=== PATIENT | female | born 1965 | race Caucasian/White ===

== ENCOUNTER → 2017-04-14 | Outpatient (CLI) | payer OTHER | LOC: CIMAGING 07:04 | PROVIDERS: ATTEND Family Medicine | DX: M54.2 Cervicalgia (principal) | CPT/HCPCS: 72050-PO ==

== ENCOUNTER 2017-06-15 13:36 | Emergency (ER) | payer OTHER ==
[2017-06-15 13:46] VITALS: O2SAT 99
--- NOTE | 2017-06-15 13:57 | CPEKG ---
Heart Rate: 60 RR Interval: 1000 P-R Interval: 188 QRSD Interval: 106 QT Interval: 440 QTC Interval: 440 P [place]: 24 QRS [place]: -6 T Wave [place]: 4 EKG Severity - NORMAL ECG - EKG Impression: SINUS RHYTHM Electronically Signed By: Adrian Gallagher 15-Jun-2017 14:44:24
[2017-06-15] MEDS ORDERED: NS 1,000 ML IV ONE (14:36)
--- NOTE | 2017-06-15 14:43 | EDPHY ---
H & P Stated Complaint: DIZZINESS , CHEST PAIN, ANXIETY AND STRESS Time Seen by Provider: 06/15/17 13:45 HPI/ROS: CHIEF COMPLAINT: Lightheaded, nauseous, anxious HISTORY OF PRESENT ILLNESS: The patient is a 52-year-old female who comes to the emergency department her complaining of 2 days worth of being lightheaded, nauseous, anxious and stressed out. She also reports intermittent pains in her shoulders bilaterally. This has been going on for years but is worsened over the last 2 days. She denies chest pain per se although her states she occasionally has is acting sensation across her chest. She also has occasional headaches and occasional paresthesias in the left side of her face just at the upper cheek. This only lasts for few minutes at a time. No weakness or deficits. 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 She had surgery for this about a year ago. She has been followed by her architectural project manager Dr. Quinn and her primary doctor . She has had negative echocardiograms and EKGs. They state that she has been to the ER several times and no significant abnormalities or found. She has an appointment with a rehabilitation program manager Dr. Shipman tomorrow in [place]. Her primary has referred her for treatment for PTSD and to explore depressive type possibilities. REVIEW OF SYSTEMS: Constitutional: denies: chills, fever, recent illness, recent injury EENTM: denies: blurred vision, double vision, nose congestion Respiratory: denies: cough, shortness of breath Cardiac: denies: chest pain, irregular heart rate, lightheadedness, palpitations Gastrointestinal/Abdominal: denies: abdominal pain, diarrhea, nausea, vomiting, blood streaked stools Genitourinary: denies: dysuria, frequency, hematuria, pain Musculoskeletal: denies: joint pain, muscle pain Skin: denies: lesions, rash, jaundice, bruising Neurological: denies: headache, numbness, paresthesia, tingling, dizziness, weakness Hematologic/Lymphatic: denies: blood clots, easy bleeding, easy bruising Immunologic/allergic: denies: HIV/AIDS, transplant EXAM: GENERAL: Well-appearing, well-nourished and in no acute distress. HEAD: Atraumatic, normocephalic. EYES: Pupils equal round and reactive to light, extraocular movements intact, sclera anicteric, conjunctiva are normal. ENT: TMs normal, nares patent, oropharynx clear without exudates. Moist mucous membranes. NECK: Normal range of motion, supple without lymphadenopathy or JVD. LUNGS: Breath sounds clear to auscultation bilaterally and equal. No wheezes rales or rhonchi. HEART: Regular rate and rhythm without murmurs, rubs or gallops. ABDOMEN: Soft, nontender, normoactive bowel sounds. No guarding, no rebound. No masses appreciated. BACK: No CVA tenderness, no spinal tenderness, step-offs or deformities EXTREMITIES: Normal range of motion, no pitting or edema. No clubbing or cyanosis. NEUROLOGICAL: Cranial nerves II through XII grossly intact. Normal speech, normal gait. 5/5 strength, normal movement in all extremities, normal sensation , normal cerebellar exam, normal strength and reflexes PSYCH: Normal mood, normal affect. SKIN: Warm, dry, normal turgor, no visible rashes or lesions. Source: Patient Exam Limitations: No limitations - Personal History LMP (Females 10-55): Post Menopausal Current Tetanus/Diphtheria Vaccine: Yes Current Tetanus Diphtheria and Acellular Pertussis (TDAP): Yes Tetanus Vaccine Date: < 10 years - Medical/Surgical History Hx Asthma: No Hx Chronic Respiratory Disease: No Hx Diabetes: No Hx Cardiac Disease: Yes Hx Renal Disease: Yes Hx Cirrhosis: No Hx Alcoholism: No Hx HIV/AIDS: No Hx Splenectomy or Spleen Trauma: No Other PMH: Fibroids, hydronephrosis, anemia, C section, heart ablation for RVOT. - Social History Smoking Status: Never smoked Constitutional: Initial Vital Signs Temperature (C) 36.7 C 06/15/17 13:44 Heart Rate 66 06/15/17 13:44 Respiratory Rate 22 H 06/15/17 13:44 Blood Pressure 147/112 H 06/15/17 13:44 O2 Sat (%) 99 06/15/17 13:44 O2 Delivery Mode Room Air Allergies/Adverse Reactions: Penicillins Allergy (Verified 07/02/16 18:05) Medical Decision Making - Diagnostics EKG Interpretation: An EKG obtained and was read and documented in trace view. Please see trace view for full reading and report. Sinus rhythm, no acute ischemic changes Imaging Results: Imaging Impressions Brain MRI 06/15/17 14:37 Impression: 1. A few nonspecific hyperintense T2/FLAIR signal abnormalities in the white matter of bilateral cerebral hemispheres. Differential diagnosis includes mild microvascular ischemic gliosis, likely secondary to hypertension, versus less likely migraine-related sequela, atypical demyelinating disease, or postinfectious/post inflammatory sequela. 2. No acute infarct, acute hemorrhage, or hydrocephalus. Findings and recommendations discussed with Emergency Department physician, Dr. Deniz Gallagher at 1726 hours on June 15, 2017. Final report concurs with initial preliminary interpretation. Head MRA 06/15/17 14:37 Impression: Negative MRA of the [place]. Findings and recommendations discussed with Emergency Department physician, DENIZ GALLAGHER at 17:28 hour, 06/15/2017. Final report concurs with initial preliminary interpretation. Neck MRA 06/15/17 14:37 Impression: MRA of the cervical carotids and vertebrals demonstrate no evidence of flow-limiting stenosis, occlusion, or dissection. Measurements of carotid stenosis is based on the residual internal carotid diameter with [place] Symptomatic Carotid Endarterectomy Trial (NASCET) based stenosis levels. Findings and recommendations discussed with Emergency Department physician, DENIZ GALLAGHER at 17:27 hour, 06/15/2017. Final report concurs with initial preliminary interpretation. ED Course/Re-evaluation: 3:40 p.m. we discussed the lab results which are reassuring. The patient is hesitant as to whether not she wants the MRI with contrast. He spent time in her room she the nurse and I and the MRI tach convincing her that it would not be damaging to her kidneys. She eventually agreed. 5:45 p.m. we had a long discussion about the test results. The patient is reassured. Her is primarily concerned that this is PTSD and depression and anxiety. There follow up with their psychiatrist and Cardiology tomorrow. They are eager to go home. We are awaiting IV fluids finish. Differential Diagnosis: Partial list of the Differential diagnosis considered include but were not limited to; anxiety, acute coronary disease, electrolyte abnormality and although unlikely based on the history and physical exam, I also considered multiple sclerosis, dissection, neuropathy. I discussed these differential diagnoses and the plan with the patient as well as the usual and expected course. The patient understands that the diagnosis is provisional and that in medicine we are not always correct and that further workup is often warranted. Usual and customary warnings were given. All of the patient's questions were answered. The patient was instructed to return to the emergency department should the symptoms at all worsen or return, otherwise to followup with the physician as we discussed. - Data Points Laboratory Results: Laboratory Results 06/15/17 13:50 06/15/17 13:50 06/15/17 06/15/17 06/15/17 13:50 13:50 13:50 WBC RBC Hgb Hct MCV MCH MCHC RDW Plt Count MPV Neut % (Auto) Lymph % (Auto) [place] % (Auto) Eos % (Auto) Baso % (Auto) Nucleat RBC Rel Count Absolute Neuts (auto) Absolute Lymphs (auto) Absolute Monos (auto) Absolute Eos (auto) Absolute Basos (auto) Absolute Nucleated RBC Immature Gran % Immature Gran # PT 13.2 SEC SEC (12.0-15.0) INR 1.01 (0.83-1.16) APTT 32.5 SEC SEC (23.0-38.0) Sodium 138 mEq/L mEq/L (134-144) Potassium 3.9 mEq/L mEq/L (3.5-5.2) Chloride 102 mEq/L mEq/L (97-110) Carbon Dioxide 21 mEq/l L mEq/l (22-31) Anion Gap 15 mEq/L mEq/L (8-16) BUN 12 mg/dL mg/dL (7-23) Creatinine 1.0 mg/dL mg/dL (0.6-1.0) Estimated GFR 58 Glucose 94 mg/dL mg/dL (70-100) Calcium 9.6 mg/dL mg/dL (8.5-10.4) Troponin I < 0.012 ng/mL ng/mL (0.000-0.034) Lipase 189 IU/L IU/L (23-300) TSH 3.180 uIU/mL uIU/mL (0.465-4.680) Beta HCG, Qual NEGATIVE 06/15/17 13:50 WBC 7.59 10^3/uL 10^3/uL (3.80-9.50) RBC 5.30 10^6/uL 10^6/uL (4.18-5.33) Hgb 14.2 g/dL g/dL (12.6-16.3) Hct 41.6 % % (38.0-47.0) MCV 78.5 fL L fL (81.5-99.8) MCH 26.8 pg L pg (27.9-34.1) MCHC 34.1 g/dL g/dL (32.4-36.7) RDW 15.5 % H % (11.5-15.2) Plt Count 260 10^3/uL 10^3/uL (150-400) MPV 11.7 fL fL (8.7-11.7) Neut % (Auto) 65.9 % % (39.3-74.2) Lymph % (Auto) 26.7 % % (15.0-45.0) [place] % (Auto) 5.5 % % (4.5-13.0) Eos % (Auto) 1.1 % % (0.6-7.6) Baso % (Auto) 0.5 % % (0.3-1.7) Nucleat RBC Rel Count 0.0 % % (0.0-0.2) Absolute Neuts (auto) 5.00 10^3/uL 10^3/uL (1.70-6.50) Absolute Lymphs (auto) 2.03 10^3/uL 10^3/uL (1.00-3.00) Absolute Monos (auto) 0.42 10^3/uL 10^3/uL (0.30-0.80) Absolute Eos (auto) 0.08 10^3/uL 10^3/uL (0.03-0.40) Absolute Basos (auto) 0.04 10^3/uL 10^3/uL (0.02-0.10) Absolute Nucleated RBC 0.00 10^3/uL 10^3/uL (0-0.01) Immature Gran % 0.3 % % (0.0-1.1) Immature Gran # 0.02 10^3/uL 10^3/uL (0.00-0.10) PT INR APTT Sodium Potassium Chloride Carbon Dioxide Anion Gap BUN Creatinine Estimated GFR Glucose Calcium Troponin I Lipase TSH Beta HCG, Qual Medications Given: Discontinued Medications Sodium Chloride (Ns) 1,000 mls @ 0 mls/hr IV EDNOW ONE; Wide Open PRN Reason: Protocol Stop: 06/15/17 14:37 Last Admin: 06/15/17 14:46 Dose: 1,000 mls Departure - Departure Disposition: Home, Routine, Self-Care Clinical Impression: Light-headed feeling Condition: Fair Instructions: Lightheadedness (ED) Referrals: Mabel Neely MD [Primary Care Provider] - As per Instructions
[2017-06-15 14:44] LABS: % IMMATURE GRANULYOCYTES 0.3 % (0.0-1.1); ABSOLUTE IMMATURE GRANULOCYTES 0.02 10^3/uL (0.00-0.10); ADD DIFF? NO; ADD MORPH? NO; ADD SCAN? NO; ATYPICAL LYMPHOCYTE FLAG 10 (0-99); FRAGMENT RBC FLAG 20 (0-99); HEMATOCRIT 41.6 % (38.0-47.0); HEMOGLOBIN 14.2 g/dL (12.6-16.3); LEFT SHIFT FLG 0 (0-99); LIPEMIA HEMOLYSIS FLAG 90 (0-99); MEAN CELL HEMOGLOBIN 26.8 pg (27.9-34.1); MEAN CELL HEMOGLOBIN CONCENTR. 34.1 g/dL (32.4-36.7); MEAN CELL VOLUME 78.5 fL (81.5-99.8); MEAN PLATELET VOLUME 11.7 fL (8.7-11.7); PLATELET CLUMPS FLAG 0 (0-99); PLATELET COUNT 260 10^3/uL (150-400); RED CELL DISTRIBUTION WIDTH 15.5 % (11.5-15.2)
[2017-06-15 14:50] LABS: ANION GAP 15 mEq/L (8-16); CALCIUM 9.6 mg/dL (8.5-10.4); CARBON DIOXIDE 21 mEq/l (22-31); CHLORIDE 102 mEq/L (97-110); GLOMERULAR FILTRATION RATE 58; GLUCOSE 94 mg/dL (70-100); POTASSIUM 3.9 mEq/L (3.5-5.2); SODIUM 138 mEq/L (134-144)
[2017-06-15 14:53] LABS: APTT 32.5 SEC (23.0-38.0); INR 1.01 (0.83-1.16); PROTIME(PATIENT) 13.2 SEC (12.0-15.0)
[2017-06-15 15:01] LABS: TROPONIN I < 0.012 ng/mL (0.000-0.034)
[2017-06-15] MEDS ORDERED: GADOBUTROL 10 ML VIAL IVP ONE (15:19)
[2017-06-15 18:08] VITALS: PULSE 67; RESP 16
[2017-06-15 18:09] VITALS: BP 125/72; TEMP 98.4
== END 2017-06-15 18:54 | disposition home or self-care (01) ==
DX: R42 Dizziness and giddiness (principal); E86.9 Volume depletion, unspecified
CPT/HCPCS: A9585

== ENCOUNTER → 2017-08-25 | Outpatient (CLI) | payer OTHER | LOC: FIMAGING 07:34 | PROVIDERS: ATTEND Family Medicine | DX: Z12.31 Encounter for screening mammogram for malignant neoplasm of breast (principal) | CPT/HCPCS: G0202 ==

== ENCOUNTER 2018-11-03 16:30 | Emergency (ER) | payer OTHER ==
[2018-11-03 17:03] VITALS: BP 136/86
== END 2018-11-03 17:23 | disposition left against medical advice (07) ==
DX: Z53.21 Procedure and treatment not carried out due to patient leaving prior to being seen by health care provider (principal)

== ENCOUNTER 2018-11-05 11:50 | Emergency (ER) | payer OTHER ==
--- NOTE | 2018-11-05 12:28 | EDPHY ---
H & P Stated Complaint: PALPITATIONS Time Seen by Provider: 11/05/18 12:25 HPI/ROS: CHIEF COMPLAINT: Palpitations HISTORY OF PRESENT ILLNESS: The patient presents the emergency department with a chief complaint of palpitations. The patient has been experiencing these intermittently over the past several days. The patient recently cut back on her Norvasc secondary to low blood pressure. The patient has been having some anxiety surrounding her symptoms of a "skipped beat." Patient does have a prior history of ablation for RV OT. The patient is scheduled to see her human projectile on Wednesday. She denies additional acute complaints currently. The patient denies cough or congestion. She denies pleuritic chest pain. REVIEW OF SYSTEMS: A comprehensive 10 point review of systems is otherwise negative aside from elements mentioned in the history of present illness. Source: Patient Exam Limitations: No limitations - Personal History LMP (Females 10-55): Hysterectomy Current Tetanus Diphtheria and Acellular Pertussis (TDAP): Yes Tetanus Vaccine Date: < 10 years - Medical/Surgical History Hx Asthma: No Hx Chronic Respiratory Disease: No Hx Diabetes: No Hx Cardiac Disease: Yes Hx Renal Disease: Yes Hx Cirrhosis: No Hx Alcoholism: No Hx HIV/AIDS: No Hx Splenectomy or Spleen Trauma: No Other PMH: Fibroids, hydronephrosis, anemia, C section, heart ablation for RVOT. HYSTERECTOMY - Social History Smoking Status: Never smoked - Physical Exam Exam: General Appearance: Alert, no distress Eyes: Pupils equal and round no pallor or injection ENT, Mouth: Mucous membranes moist Respiratory: There are no retractions, lungs are clear to auscultation Cardiovascular: Regular rate and rhythm Gastrointestinal: Abdomen is soft and nontender, no masses, bowel sounds normal Neurological: A&O, normal motor function, normal sensory exam, normal cranial nerves Skin: Warm and dry, no rashes Musculoskeletal: Neck is supple nontender Extremities: symmetrical, full range of motion Constitutional: Initial Vital Signs Temperature (C) 36.8 C 11/05/18 11:54 Heart Rate 65 11/05/18 11:54 Respiratory Rate 18 11/05/18 11:54 Blood Pressure 143/83 H 11/05/18 11:54 O2 Sat (%) 100 11/05/18 11:54 O2 Delivery Mode Room Air Allergies/Adverse Reactions: No Known Allergies Allergy (Verified 11/05/18 11:54) Home Medications: Medication Instructions Recorded Crestor 11/03/18 amLODIPine BESYLATE 11/03/18 Medical Decision Making - Diagnostics EKG Interpretation: EKG: Complete interpretation has been separately recorded in the [facility] archive. Summary impression: Sinus rhythm, rate 61, nonspecific ST T wave changes noted ED Course/Re-evaluation: The patient was placed on a cafe manager was noted to have symptomatic unifocal PVCs. Workup in the emergency department demonstrates no evidence of ischemia on her EKG. The patient's troponin is normal. Her CBC and serum chemistries are unremarkable. The patient is scheduled to see her human projectile on Wednesday. They have talked about the possibility of a Holter monitor. At this point time I see no evidence of an obvious arrhythmia, ischemia or critical metabolic issue. The patient has been advised to follow up with Cardiology as scheduled. She should return to the ED for markedly worsening symptoms or other concerns. Differential Diagnosis: Differential diagnosis considered includes arrhythmia, dehydration, metabolic abnormality, anxiety - Data Points Laboratory Results: Laboratory Results 11/05/18 12:15 11/05/18 12:15 11/05/18 11/05/18 11/05/18 12:16 12:15 12:15 WBC 7.03 10^3/uL 10^3/uL (3.80-9.50) RBC 5.14 10^6/uL 10^6/uL (4.18-5.33) Hgb 15.5 g/dL g/dL (12.6-16.3) Hct 44.1 % % (38.0-47.0) MCV 85.8 fL fL (81.5-99.8) MCH 30.2 pg pg (27.9-34.1) MCHC 35.1 g/dL g/dL (32.4-36.7) RDW 14.2 % % (11.5-15.2) Plt Count 239 10^3/uL 10^3/uL (150-400) MPV 10.4 fL fL (8.7-11.7) Neut % (Auto) 66.4 % % (39.3-74.2) Lymph % (Auto) 26.0 % % (15.0-45.0) [place] % (Auto) 5.5 % % (4.5-13.0) Eos % (Auto) 1.3 % % (0.6-7.6) Baso % (Auto) 0.4 % % (0.3-1.7) Nucleat RBC Rel Count 0.0 % % (0.0-0.2) Absolute Neuts (auto) 4.66 10^3/uL 10^3/uL (1.70-6.50) Absolute Lymphs (auto) 1.83 10^3/uL 10^3/uL (1.00-3.00) Absolute Monos (auto) 0.39 10^3/uL 10^3/uL (0.30-0.80) Absolute Eos (auto) 0.09 10^3/uL 10^3/uL (0.03-0.40) Absolute Basos (auto) 0.03 10^3/uL 10^3/uL (0.02-0.10) Absolute Nucleated RBC 0.00 10^3/uL 10^3/uL (0-0.01) Immature Gran % 0.4 % % (0.0-1.1) Immature Gran # 0.03 10^3/uL 10^3/uL (0.00-0.10) Sodium 140 mEq/L mEq/L (135-145) Potassium 3.5 mEq/L mEq/L (3.5-5.2) Chloride 109 mEq/L mEq/L (97-110) Carbon Dioxide 25 mEq/l mEq/l (22-31) Anion Gap 6 mEq/L mEq/L (6-14) BUN 15 mg/dL mg/dL (7-23) Creatinine 1.1 mg/dL H mg/dL (0.6-1.0) Estimated GFR 52 Glucose 73 mg/dL mg/dL (70-100) Calcium 9.2 mg/dL mg/dL (8.5-10.4) POC Troponin I 0.01 ng/mL ng/mL (0.00-0.08) Point of Care Test Results: Chemistry 11/05/18 12:16 POC Troponin I 0.01 ng/mL ng/mL (0.00-0.08) Departure - Departure Disposition: Home, Routine, Self-Care Clinical Impression: PVCs (premature ventricular contractions) Condition: Good Instructions: Premature Ventricular Contractions (ED) Additional Instructions: 1. The testing in the emergency department today demonstrates only premature beats. 2. Please follow up with your human projectile as scheduled. 3. Return to the ED for markedly worsening symptoms or other concerns. Referrals: SIRENA DONAHUE MD [Primary Care Provider] - As per Instructions
[2018-11-05 13:10] LABS: PLATELET COUNT 239 10^3/uL (150-400)
[2018-11-05 13:53] VITALS: BP 129/85
--- NOTE | 2018-11-05 13:56 | CPEKG ---
Test Reason : OPEN Blood Pressure : / mmHG Vent. Rate : 061 BPM Atrial Rate : 061 BPM P-R Int : 170 ms QRS Dur : 109 ms QT Int : 450 ms P-R-T Axes : 034 -33 -19 degrees QTc Int : 454 ms Sinus rhythm Left axis deviation Low voltage, precordial leads Borderline T abnormalities, diffuse leads Confirmed by Chris Li ([id number]) on 11/05/2018 1:55:23 PM Referred By: PHYSICIAN ED Confirmed By:Chris Li
== END 2018-11-05 14:10 | disposition home or self-care (01) ==
DX: I49.3 Ventricular premature depolarization (principal); I95.9 Hypotension, unspecified
CPT/HCPCS: 84484-ER